=== PATIENT | female | born 1980 | race Two or more races ===

== ENCOUNTER 2018-01-09 11:21 | Emergency (ER) | payer SELFPAY ==
--- NOTE | 2018-01-09 11:49 | ER Document Report ---
ED Medical Screen (RME) - General Chief Complaint: Chest Pain Stated Complaint: CHEST PAIN,LIGHTHEADED Time Seen by Provider: 01/09/18 11:40 Mode of Arrival: Ambulatory Information source: Patient Notes: This is a 37-year-old female with a history of schizophrenia (Saphris) and anxiety (Propranolol PRN) who presents to the emergency room with lightheadedness which is worse with standing and getting up from the sitting position. Patient was seen at [facility] emergency room. The report from [facility] states that the patient was having chest pain lightheadedness. Patient states that she is not having any chest pain now, just lightheadedness. She states that she does get anxious, she feels her heart beating fast. - Related Data Allergies/Adverse Reactions: Penicillins Allergy (Verified 01/09/18 11:25) honey Adverse Reaction (Verified 01/09/18 11:25) Past Medical History - Social History Frequency of alcohol use: Social Renal/ Medical History: Denies: Hx Peritoneal Dialysis Psychiatric Medical History: Reports: Hx Schizophrenia Physical Exam - Vital signs Vitals: Temp Pulse Resp BP Pulse Ox 98.0 F 103 H 16 140/76 H 100 01/09/18 11:36 01/09/18 11:36 01/09/18 11:36 01/09/18 11:36 01/09/18 11:36 Course - Vital Signs Vital signs: Temp Pulse Resp BP Pulse Ox 98.0 F 103 H 16 140/76 H 100 01/09/18 11:36 01/09/18 11:36 01/09/18 11:36 01/09/18 11:36 01/09/18 11:36
--- NOTE | 2018-01-09 12:19 | RADIOLOGY REPORT (SQ) ---
EXAM DESCRIPTION: CHEST SINGLE VIEW COMPLETED DATE/TIME: 01/09/2018 12:11 pm REASON FOR STUDY: chest pain COMPARISON: None. EXAM PARAMETERS: NUMBER OF VIEWS: One view. TECHNIQUE: Single frontal radiographic view of the chest acquired. RADIATION DOSE: NA LIMITATIONS: None. FINDINGS: LUNGS AND PLEURA: No opacities, masses or pneumothorax. No pleural effusion. MEDIASTINUM AND HILAR STRUCTURES: No masses. Contour normal. HEART AND VASCULAR STRUCTURES: Heart normal in size. Normal vasculature. BONES: No acute findings. HARDWARE: None in the chest. OTHER: No other significant finding. IMPRESSION: NO ACUTE RADIOGRAPHIC FINDING IN THE CHEST. TECHNICAL DOCUMENTATION: JOB ID: [id number] [employer]- All Rights Reserved Reading location - IP/workstation name: [email or web address]
[2018-01-09 12:26] LABS: ABSOLUTE BASOPHILS # (AUTO) 0.1 10^3/uL (0.0-0.2); ABSOLUTE EOSINOPHILS # (AUTO) 0.4 10^3/uL (0.0-0.6); ABSOLUTE LYMPHOCYTES (AUTO) 2.7 10^3/uL (0.5-4.7); ABSOLUTE MONOCYTES (AUTO) 0.5 10^3/uL (0.1-1.4); ABSOLUTE NEUT (AUTO) 2.9 10^3/uL (1.7-8.2); BASOPHILS % (AUTO) 1.1 % (0-2); HEMATOCRIT 41.7 % (36.0-47.0); HEMOGLOBIN 14.3 g/dL (12.0-15.5); LYMPHOCYTES % (AUTO) 41.4 % (13-45); MEAN CORPUSCULAR HEMOGLOBIN 28.2 pg (27.0-33.4); MEAN CORPUSCULAR HGB CONC 34.2 g/dL (32.0-36.0); MEAN CORPUSCULAR VOLUME 82 fl (80-97); MONOCYTES % (AUTO) 7.8 % (3-13); PLATELET COUNT 246 10^3/uL (150-450); RED BLOOD COUNT 5.06 10^6/uL (3.72-5.28); RED CELL DISTRIBUTION WIDTH 14.1 % (11.5-14.0); SEGMENTED NEUTROPHILS % (AUTO) 43.7 % (42-78); TOTAL CELLS COUNTED % (AUTO) 100 %; WHITE BLOOD COUNT 6.6 10^3/uL (4.0-10.5)
[2018-01-09 12:49] LABS: ALANINE AMINOTRANSFERASE 21 U/L (9-52); ALBUMIN 4.8 g/dL (3.5-5.0); ALKALINE PHOSPHATASE 66 U/L (38-126); ANION GAP 12 (5-19); ASPARTATE AMINO TRANSFERASE 29 U/L (14-36); BILIRUBIN,DIRECT 0.2 mg/dL (0.0-0.4); BILIRUBIN,TOTAL 0.6 mg/dL (0.2-1.3); BLOOD UREA NITROGEN 9 mg/dL (7-20); CALCIUM 10.2 mg/dL (8.4-10.2); CARBON DIOXIDE 24 mmol/L (22-30); CHLORIDE 105 mmol/L (98-107); CREATINE KINASE 94 U/L (30-135); GLUCOSE 109 mg/dL (75-110); POTASSIUM 4.4 mmol/L (3.6-5.0); SODIUM 141.3 mmol/L (137-145); TOTAL PROTEIN 8.8 g/dL (6.3-8.2)
[2018-01-09 13:00] LABS: CREATINE KINASE MB 0.28 ng/mL (<4.55)
[2018-01-09 13:02] LABS: TROPONIN I < 0.012 ng/mL
[2018-01-09 13:05] LABS: FREE T4 (FREE THYROXINE) 0.95 ng/dL (0.78-2.19)
[2018-01-09 13:19] LABS: THYROID STIMULATING HORMONE 1.38 uIU/mL (0.47-4.68)
--- NOTE | 2018-01-09 15:05 | ER Document Report ---
ED General - General Mode of Arrival: Ambulatory <HEATHER PARKER - Last Filed: 01/09/18 23:59> <PADILLA WHYTE - Last Filed: 01/10/18 00:50> - General Chief Complaint: Chest Pain Stated Complaint: CHEST PAIN,LIGHTHEADED Time Seen by Provider: 01/09/18 11:40 - HPI Notes: This is a 37-year-old pleasant female who presents to the ED with chief complaint of chest pain and lightheadedness x 1 week. She had previous symptoms 2-3 years ago and was seen at [facility]. Patient endorses chest pain that is dull in sensation, nonradiating. She endorses dizziness described as feeling woozy. She endorses palpitations described as a fluttering in her chest. She denies diaphoresis. She states she is a high anxiety person and does see a mental health provider for it. She recently started a new job which she feels is contributing to the symptoms. She does endorse nausea and vomiting x1 this morning. Patient takes propranolol 10mg PRN and last dose was yesterday. Patient has a known heart murmur since . Patient denies any history of thyroid disease and has no other significant past medical history. Patient denies EtOH use, smoking, or illicits. ( HEATHER PARKER) - Related Data Allergies/Adverse Reactions: Penicillins Allergy (Verified 01/09/18 11:25) honey Adverse Reaction (Verified 01/09/18 11:25) Past Medical History - General Information source: Patient - Social History Smoking Status: Never Smoker Frequency of alcohol use: Social Drug Abuse: None Family History: None, Other - No family history of early Patient has suicidal ideation: No Patient has homicidal ideation: No - Past Medical History Cardiac Medical History: Reports: Hx Heart Murmur Pulmonary Medical History: Reports: None Neurological Medical History: Reports: Other - Anxiety Endocrine Medical History: Denies: Hx Hyperthyroidism Renal/ Medical History: Denies: Hx Peritoneal Dialysis Psychiatric Medical History: Reports: Hx Anxiety, Hx Schizophrenia <HEATHER PARKER - Last Filed: 01/09/18 23:59> Review of Systems - Review of Systems Constitutional: No symptoms reported EENT: No symptoms reported Cardiovascular: Palpitations, Heart racing, Lightheaded Gastrointestinal: Vomiting - x1 this morning Musculoskeletal: Neck pain - muscle tension <HEATHER PARKER - Last Filed: 01/09/18 23:59> Physical Exam - General General appearance: Appears well In distress: None - HEENT Head: Normocephalic Eyes: Normal Conjunctiva: Normal Extraocular movements intact: Yes - Respiratory Respiratory status: No respiratory distress Breath sounds: Normal Chest palpation: Normal - Cardiovascular Murmur: Yes Systolic murmur grade 1-6: 2 Friction rub: No Gallop: None auscultated Pulses: Normal: Radial - Abdominal Inspection: Normal Distension: No distension Tenderness: Nontender - Neurological Cognition: Normal Orientation: AAOx4 Speech: Normal - Psychological Associated symptoms: Normal affect - Skin Skin Temperature: Warm Skin Moisture: Dry Skin Color: Normal <HEATHER PARKER - Last Filed: 01/09/18 23:59> <PADILLA WHYTE - Last Filed: 01/10/18 00:50> - Vital signs Vitals: Temp Pulse Resp BP Pulse Ox 98.0 F 103 H 16 140/76 H 100 01/09/18 11:36 01/09/18 11:36 01/09/18 11:36 01/09/18 11:36 01/09/18 11:36 - Notes Notes: well developed well nourished female in no acute distress sitting comfortably at the bedside. (HEATHER PARKER) Course - Laboratory Result Diagrams: 01/09/18 12:00 01/09/18 12:00 <HEATHER PARKER - Last Filed: 01/09/18 23:59> - Laboratory Result Diagrams: 01/09/18 12:00 01/09/18 12:00 <PADILLA WHYTE - Last Filed: 01/10/18 00:50> - Re-evaluation Re-evalutation: 01/09/18 17:00 Reassessed patient and she was more comfortable. Her heart rate came down to between 80 and 90. No longer in sinus tachycardia after receiving propranolol 10 mg p.o. x1. Thyroid panel was normal so less likely etiology for tachycardia. Patient stated she felt much better and calm after speaking with Dr. Whyte. Sinus tachycardia most likely secondary to anxiety as patient has previous diagnosis. Discussed with patient the importance of establishing a primary care provider for follow-up and potential cardiac monitoring device.. 01/09/18 17:17 (HEATHER PARKER) 01/10/18 00:50 I did personally evaluate this patient with the mid-level provider patient coming in for chest pain lightheadedness palpitations. Patient was found to be tachycardic here in ER however has been noncompliant with her propranolol today. Patient does have a history of anxiety. Workup does not show any acute pathology d-dimer is negative after receiving the patient's dose of propranolol heart rate did respond appropriately. Recommend patient follow-up with your primary care provider also recommend patient follow-up with a park recreation manager. ( PADILLA WHYTE) - Vital Signs Vital signs: Temp Pulse Resp BP Pulse Ox 98.0 F 103 H 15 132/73 H 100 01/09/18 11:36 01/09/18 11:36 01/09/18 17:01 01/09/18 17:00 01/09/18 17:01 - Laboratory Laboratory results interpreted by me: 01/09/18 01/09/18 12:00 12:00 RDW 14.1 H Total Protein 8.8 H Discharge <HEATHER PARKER - Last Filed: 01/09/18 23:59> <PADILLA WHYTE - Last Filed: 01/10/18 00:50> - Discharge Clinical Impression: Sinus tachycardia, Anxiety, Palpitations, Dizziness Condition: Good Disposition: HOME, SELF-CARE Instructions: Anxiety ([facility]), Dizziness ([facility]), Family Physicians / Practices, Palpitations (Irregular or Rapid Heartrate) ([facility]), Sinus Tachycardia ([facility]) Additional Instructions: It is important to establish care with a primary care doctor. We will provide you with a list of providers. Also, follow-up with your mental health provider to discuss your medications. Try to employ stress reduction techniques to help with your anxiety. Take your medications as prescribed. Continued to have chest pain or worsening palpitations or high heart rate please return to the emergency department. Referrals: AMELIE BOONE MD [ACTIVE STAFF] - Follow up as needed
[2018-01-09] MEDS ORDERED: PROPRANOLOL HCL 10 MG TABLET PO ONE (15:47)
[2018-01-09] MEDS ORDERED: NORMAL SALINE 500 ML IV ONE (15:48)
[2018-01-09] MEDS ORDERED: METOPROLOL TARTRATE PF/INJ 5 MG/5 ML SDV IV ONE (15:48)
[2018-01-09 17:39] VITALS: BP 132/73
--- NOTE | 2018-01-09 22:19 | EKG REPORT ---
SEVERITY:- OTHERWISE NORMAL ECG - SINUS TACHYCARDIA MINIMAL ST DEPRESSION, INFERIOR LEADS : Confirmed by: Blaire Babcock MD 09-Jan-2018 22:18:32
== END 2018-01-09 18:09 | disposition home or self-care (01) ==
LOC: EDBD 11:21 → ER 11:21 → MERGE 11:21 → ER 18:09
DX: R42 Dizziness and giddiness (principal); R00.0 Tachycardia, unspecified; R00.2 Palpitations; R07.9 Chest pain, unspecified; Z88.0 Allergy status to penicillin
CPT/HCPCS: 93005; 99285; 96360; 36415; 84439; 82553; 82550; 84443; 85025; 80053; 84484; 84481; 85379; 71045; 93010; J3490; J7040

== ENCOUNTER 2018-01-11 08:47 | Emergency (ER) | payer SELFPAY ==
[2018-01-11] MEDS ORDERED: ASPIRIN 81 MG TABLET, CHEWABLE PO ONE (09:28)
--- NOTE | 2018-01-11 10:01 | RADIOLOGY REPORT (SQ) ---
EXAM DESCRIPTION: CHEST SINGLE VIEW COMPLETED DATE/TIME: 01/11/2018 9:50 am REASON FOR STUDY: cp COMPARISON: None. NUMBER OF VIEWS: One view. TECHNIQUE: Single frontal radiographic view of the chest acquired. LIMITATIONS: None. FINDINGS: LUNGS AND PLEURA: No opacities, masses or pneumothorax. No pleural effusion. MEDIASTINUM AND HILAR STRUCTURES: No masses. Contour normal. HEART AND VASCULAR STRUCTURES: Heart normal in size. Normal vasculature. BONES: No acute findings. HARDWARE: None in the chest. OTHER: No other significant finding. IMPRESSION: NO SIGNIFICANT RADIOGRAPHIC FINDING IN THE CHEST. TECHNICAL DOCUMENTATION: JOB ID: [id number] [employer]- All Rights Reserved Reading location - IP/workstation name: [email or web address]
[2018-01-11 10:12] LABS: ABSOLUTE BASOPHILS # (AUTO) 0.1 10^3/uL (0.0-0.2); ABSOLUTE EOSINOPHILS # (AUTO) 0.4 10^3/uL (0.0-0.6); ABSOLUTE LYMPHOCYTES (AUTO) 2.4 10^3/uL (0.5-4.7); ABSOLUTE MONOCYTES (AUTO) 0.5 10^3/uL (0.1-1.4); ABSOLUTE NEUT (AUTO) 2.4 10^3/uL (1.7-8.2); BASOPHILS % (AUTO) 0.9 % (0-2); EOSINOPHILS % (AUTO) 7.1 % (0-6); HEMATOCRIT 38.3 % (36.0-47.0); HEMOGLOBIN 13.1 g/dL (12.0-15.5); LYMPHOCYTES % (AUTO) 41.5 % (13-45); MEAN CORPUSCULAR HEMOGLOBIN 28.3 pg (27.0-33.4); MEAN CORPUSCULAR HGB CONC 34.2 g/dL (32.0-36.0); MEAN CORPUSCULAR VOLUME 83 fl (80-97); MONOCYTES % (AUTO) 8.6 % (3-13); PLATELET COUNT 237 10^3/uL (150-450); RED BLOOD COUNT 4.63 10^6/uL (3.72-5.28); RED CELL DISTRIBUTION WIDTH 14.1 % (11.5-14.0); SEGMENTED NEUTROPHILS % (AUTO) 41.9 % (42-78); TOTAL CELLS COUNTED % (AUTO) 100 %; WHITE BLOOD COUNT 5.7 10^3/uL (4.0-10.5)
--- NOTE | 2018-01-11 10:22 | ER Document Report ---
ED General - General Mode of Arrival: Ambulatory Information source: Patient TRAVEL OUTSIDE OF THE [place] IN LAST 30 DAYS: No <BARTOLOME WELLS - Last Filed: 01/11/18 18:32> <ZAIDA CULVER - Last Filed: 01/11/18 18:36> - General Chief Complaint: Chest Pain > 30 Stated Complaint: CHEST PAIN Time Seen by Provider: 01/11/18 09:39 Notes: Patient is a 37 year old female presenting to the emergency department complaining of chest pain, lightheadedness, and abdominal pain. Patient states she began to have intermittent chest pain onset approximately 1 week ago followed by lightheadedness onset 2 after her chest pain onset. Patient states her chest pain was onset while she was relaxing at home and describes it initially as a "zing" which changed into burning sensation after receiving Aspirin. The chest pain normally lasts approximately 5 minutes. She states her lightheadedness is constant and describes it as feeling like she is going to have a syncopal episode that is exacerbated with standing and ambulating. She describes her abdominal pain as "gas pains". She states she has taken an anti gas OTC with no relief and has not tried any antacids. Patient mentions using the restroom approximately 1-2x every hour and describes her urine as light yellow which she states is normal for her. Patient was seen in the emergency department 2 days ago for similar symptoms and was discharged home after having blood work and an ekg performed. Patient is currently prescribed propranolol which she is taking for her schizophrenia as needed. (BARTOLOME WELLS) - Related Data Allergies/Adverse Reactions: Penicillins Allergy (Verified 01/11/18 08:49) honey Adverse Reaction (Uncoded 01/11/18 10:20) lychees Adverse Reaction (Uncoded 01/11/18 10:20) Past Medical History - General Information source: Patient - Social History Smoking Status: Never Smoker Cigarette use (# per day): No Chew tobacco use (# tins/day): No Frequency of alcohol use: Social Drug Abuse: None Family History: Hypertension, Other - Acid Reflux Patient has suicidal ideation: No Patient has homicidal ideation: No <BARTOLOME WELLS - Last Filed: 01/11/18 18:32> Review of Systems - Review of Systems Constitutional: No symptoms reported EENT: No symptoms reported Cardiovascular: See HPI, Chest pain, Lightheaded Respiratory: No symptoms reported Gastrointestinal: See HPI, Abdominal pain Genitourinary: No symptoms reported Female Genitourinary: No symptoms reported Musculoskeletal: No symptoms reported Skin: No symptoms reported Hematologic/Lymphatic: No symptoms reported Neurological/Psychological: No symptoms reported <PRISCILLABARTOLOME JOHNSON - Last Filed: 01/11/18 18:32> Physical Exam <BARTOLOME WELLS - Last Filed: 01/11/18 18:32> <ZAIDA CULVER - Last Filed: 01/11/18 18:36> - Vital signs Vitals: Temp Pulse Resp BP Pulse Ox 98.4 F 80 16 134/84 H 100 01/11/18 08:58 01/11/18 08:58 01/11/18 08:58 01/11/18 08:58 01/11/18 08:58 - Notes Notes: GENERAL: Alert, interacts well. No acute distress. HEAD: Normocephalic, atraumatic. EYES: Pupils equal, round, and reactive to light. Extraocular movements intact. ENT: Oral mucosa moist, tongue midline. NECK: Full range of motion. Supple. Trachea midline. LUNGS: Clear to auscultation bilaterally, no wheezes, rales, or rhonchi. No respiratory distress. HEART: Regular rate and rhythm. No murmurs, gallops, or rubs. ABDOMEN: Soft, non-tender. Non-distended. Bowel sounds present in all 4 quadrants. EXTREMITIES: Moves all 4 extremities spontaneously. No edema, radial and dorsalis pedis pulses 2/4 bilaterally. No cyanosis. NEUROLOGICAL: Alert and oriented x3. Normal speech. Finger to nose and heel to garcia testing intact. PSYCH: Normal affect, normal mood. SKIN: Warm, dry, normal turgor. No rashes or lesions noted. (BARTOLOME WELLS) Course - Laboratory Result Diagrams: 01/11/18 09:50 01/11/18 09:50 <PRISCILLAJUANMARIE - Last Filed: 01/11/18 18:32> - Laboratory Result Diagrams: 01/11/18 09:50 01/11/18 09:50 <ZAIDA CULVER - Last Filed: 01/11/18 18:36> - Re-evaluation Re-evalutation: 01/11/18 13:13 CBC grossly unremarkable, CMP unremarkable, cardiac enzymes negative, urinalysis shows small blood, 1 RBC, normal CK and CK-MB lean against rhabdo causing small blood in her urine. test is negative. Chest x-ray shows no acute process, EKG is nonischemic. Orthostatic vital signs are negative. At present I see no life-threatening etiology of her intermittent chest pain or of her constant lightheadedness. The constant lightheadedness could be due to the propranolol that she is taking although it is unlikely as she is not having any bradycardia or hypotension. It is positional, gets worse when she goes from sitting to standing. Patient is encouraged to change position very slowly, there is no evidence of dehydration on her blood work. Patient chest pain is occasionally burning in nature and worsens after eating. Patient is given a GI cocktail and encouraged to try Zantac at home. Encouraged to follow-up with cardiology as an outpatient as well as with psychiatry for her propranolol dosing. (ZAIDA CULVER) - Vital Signs Vital signs: Temp Pulse Resp BP Pulse Ox 98.4 F 80 14 126/80 H 100 01/11/18 08:58 01/11/18 11:09 01/11/18 13:01 01/11/18 13:00 01/11/18 13:01 - Laboratory Laboratory results interpreted by me: 01/11/18 01/11/18 09:50 09:50 RDW 14.1 H Seg Neutrophils % 41.9 L Eosinophils % 7.1 H Urine Blood SMALL H - EKG Interpretation by Me Additional EKG results interpreted by me: 01/11/18 13:15 EKG shows sinus rhythm at a rate of 84, normal axis, normal intervals, no ST segment elevations or depressions, no T wave inversions, there are inverted P waves in aVL per my interpretation. (ZAIDA CULVER) Discharge <BARTOLOME WELLS - Last Filed: 01/11/18 18:32> <ZAIDA CULVER - Last Filed: 01/11/18 18:36> - Discharge Clinical Impression: Lightheadedness, Intermittent chest pain Condition: Stable Disposition: HOME, SELF-CARE Additional Instructions: Chest Pain of Unclear Cause The exact cause of your chest pain isn't clear. Fortunately, there is no evidence of a dangerous medical condition. Further testing may be required to find the source of the pain. Most often, we find that this pain is coming from the chest wall -- the muscles or rib joints in the chest. But chest pain can come from the lung and lung lining, the esophagus, the heart valves or heart lining, and even the stomach or gallbladder. Rest. Eat lightly until the pain is gone. We may prescribe medicine for pain and inflammation. You should call the physician immediately if the pain radiates to the shoulder, jaw or arms; if you start to run a fever or develop a cough; or if you develop shortness of breath, or other new or alarming symptoms. Please take Zantac 150 mg twice a day for the next 2 weeks. Please take your propranolol daily for the next 3 weeks. Please follow-up with cardiology and psychiatry as an outpatient. Please return to the emergency department for any new or concerning symptoms. Referrals: TIEN ORTEGA MD [ACTIVE STAFF] - Follow up in 3-5 days Scribe Attestation: 01/11/18 18:36 I personally performed the services described in the documentation, reviewed and edited the documentation which was dictated to the scribe in my presence, and it accurately records my words and actions. (ZAIDA CULVER) Scribe Documentation - Scribe Written by Margarita:: Margarita Lucas, 01/11/2018 10:53 acting as scribe for :: Sherman <BARTOLOME WELLS - Last Filed: 01/11/18 18:32>
[2018-01-11 10:34] LABS: ALANINE AMINOTRANSFERASE 13 U/L (9-52); ALBUMIN 4.3 g/dL (3.5-5.0); ALKALINE PHOSPHATASE 55 U/L (38-126); ANION GAP 12 (5-19); ASPARTATE AMINO TRANSFERASE 23 U/L (14-36); BILIRUBIN,TOTAL 0.4 mg/dL (0.2-1.3); BLOOD UREA NITROGEN 10 mg/dL (7-20); CALCIUM 9.9 mg/dL (8.4-10.2); CARBON DIOXIDE 25 mmol/L (22-30); CHLORIDE 106 mmol/L (98-107); CREATINE KINASE 81 U/L (30-135); GLUCOSE 101 mg/dL (75-110); POTASSIUM 4.8 mmol/L (3.6-5.0); SODIUM 142.9 mmol/L (137-145)
[2018-01-11 10:56] LABS: CREATINE KINASE MB < 0.22 ng/mL (<4.55); TROPONIN I < 0.012 ng/mL
[2018-01-11] MEDS ORDERED: NORMAL SALINE 1000 ML 1,000 ML IV ONE (10:57)
[2018-01-11 11:12] LABS: APPEARANCE,URINE CLEAR; BILIRUBIN,URINE NEGATIVE (NEGATIVE); COLOR,URINE COLORLESS; GLUCOSE, URINE NEGATIVE (NEGATIVE); KETONES,URINE NEGATIVE (NEGATIVE); LEUKOCYTE ESTERASE,URINE NEGATIVE (NEGATIVE); NITRITE,URINE NEGATIVE (NEGATIVE); PROTEIN,URINE NEGATIVE (NEGATIVE); URINE SPECIFIC GRAVITY 1.004; UROBILINOGEN,URINE NEGATIVE mg/dL (<2.0)
[2018-01-11] MEDS ORDERED: METOCLOPRAMIDE HCL ORAL SOLN 10 MG/10 ML UDCUP PO ONE (13:13)
[2018-01-11] MEDS ORDERED: LIDOCAINE 2% VISCOUS SOLN 20 ML UDCUP PO ONE (13:13)
[2018-01-11] MEDS ORDERED: MAG HYDROX/AL HYDROX/SIMETH SUSP 30 ML UDCUP PO ONE (13:13)
--- NOTE | 2018-01-11 13:14 | EKG REPORT ---
SEVERITY:- ABNORMAL ECG - SINUS RHYTHM RAA, CONSIDER BIATRIAL ABNORMALITIES : Confirmed by: Daren Garcia MD 11-Jan-2018 13:13:23
[2018-01-11 13:43] VITALS: BP 126/80
== END 2018-01-11 13:50 | disposition home or self-care (01) ==
LOC: ER 08:47
DX: R07.9 Chest pain, unspecified (principal); R42 Dizziness and giddiness; R10.9 Unspecified abdominal pain; Z79.899 Other long term (current) drug therapy
CPT/HCPCS: 93005; 99285; 96360; 36415; 82553; 82550; 85025; 81025; 80053; 81001; 84484; 71045; 93010; J3490; J7030